=== PATIENT | female | born 1950 | race Caucasian/White ===

== ENCOUNTER 2022-12-17 10:40 | Emergency (ER) | payer MEDICARE, SELFPAY ==
[2022-12-17 10:53] VITALS: BP 124/59; PULSE 90; RESP 16; TEMP 36.8; O2SAT 98
--- NOTE | 2022-12-17 11:06 | ED.URI ---
HPI - URI/Sore Throat General Chief Complaint: Upper Respiratory Infection Stated Complaint: Sore Throat/Ear Pain Source: patient and RN notes reviewed History of Present Illness HPI Narrative: 72 yo F presents to urgent care for a sore throat and bilateral ear pain since Wednesday. Pt reports tender, cervical, lymph nodes as well. Reports a slight runny nose. Denies any fevers, chills, N/V/D, abdominal pain, chest pain, SOB, or ONEILL. Pt was seen at another urgent care on Wednesday where they didn't have any strep swabs so they prescribed pt Augmentin to cover strep. Pt has been taking the Augmentin without relief. Pt also has taken Tylenol at home. Related Data Home Medications Medication Instructions Recorded Confirmed amlodipine 5 mg tablet mg 12/17/22 amoxicillin 875 mg-potassium tablet 12/17/22 clavulanate 125 mg tablet aspirin 81 mg chewable tablet 81 mg PO DAILY 12/17/22 12/17/22 atorvastatin 20 mg tablet mg 12/17/22 enalapril maleate 20 mg tablet mg 12/17/22 paroxetine HCl 20 mg tablet mg PO 12/17/22 topiramate 25 mg tablet mg 12/17/22 Allergies Allergy/AdvReac Type Severity Reaction Status Date / Time No Known Allergies Allergy Verified 12/17/22 11:02 Review of Systems Review of Systems: Pertinent positives and pertinent negatives per HPI. [facility] Family History Family History (Updated 04/12/14 @ 07:13 by DOCTOR UNKNOWN) Mother Family history of thyroid disease Hypertension Family history of kidney disease Sibling Hypertension Father Cerebrovascular accident Family history of kidney disease Social History Social History Smoking status: Never smoker Alcohol intake: never Comments At the time of my signature, I reviewed and agree with the nursing past medical, surgical, social, and family history. There is no relevant family history pertinent to the patient complaint. Exam Narrative: GENERAL: This is a well-nourished, well-developed patient, in no apparent distress. HEAD: normocephalic, atraumatic. EYES: Sclera clear/white. Vision is grossly intact. EARS: External ears normal, auditory canals clear and without drainage, TMs normal without perforation. Hearing grossly intact. NOSE: External nose normal with no obvious nasal discharge, nares without redness, no rhinorrhea. THROAT: Mucous membranes moist, posterior pharynx erythemic. NECK: Neck supple, non-tender without lymphadenopathy, masses or thyromegaly. CARDIOVASCULAR: Regular rate and rhythm without murmurs, gallops, or rubs. RESPIRATORY: Clear to auscultation. Breath sounds equal bilaterally. No wheezes, rales, or rhonchi. SKIN: warm, intact with no suspicious lesions or rash, good texture and turgor. NEURO: awake, alert, and oriented to person, place and time. There were no obvious focal neurologic abnormalities. Course Course Level of Care: Express Care Visit Vital Signs Vital signs: Vital Signs Temperature 98.2 F 12/17/22 10:53 Pulse Rate 90 12/17/22 10:53 Respiratory Rate 16 12/17/22 10:53 Blood Pressure 124/59 L 12/17/22 10:53 Pulse Oximetry 98 12/17/22 10:53 Oxygen Delivery Room Air 12/17/22 10:53 Temperature 98.2 F 12/17/22 10:53 Pulse Rate 90 12/17/22 10:53 Respiratory Rate 16 12/17/22 10:53 Blood Pressure 124/59 L 12/17/22 10:53 Pulse Oximetry 98 12/17/22 10:53 Oxygen Delivery Room Air 12/17/22 10:53 reviewed. MDM - URI/Sore Throat MDM Narrative Medical decision making narrative: May take Tylenol for pain if needed. Get plenty of fluids at home. Increase your Vitamin C. Go to the ER with any new or worsening symptoms. Follow up with general contractor in 2-7 days. Differential Diagnosis Differential diagnosis: Likely upper respiratory infection, otitis media and pharyngitis Critical Care Time Critical Care Time Critical Care Time: No Discharge Plan Discharge Clinical Impression: Pharyngitis Qualifiers: Pharyngitis/tonsillitis etiology:
== END 2022-12-17 11:10 | disposition home or self-care (01) ==
PROVIDERS: Emergency Provider Nurse Practitioner Family; PCP Internal Medicine
DX: J02.9 Acute pharyngitis, unspecified (principal); E78.00 Pure hypercholesterolemia, unspecified; I10 Essential (primary) hypertension; F41.9 Anxiety disorder, unspecified; F32.A Depression, unspecified
CPT/HCPCS: 99211; G0463

== ENCOUNTER 2025-07-29 08:27 | Emergency (ER) | payer MEDICARE, SELFPAY ==
[2025-07-29 08:37] VITALS: BP 151/76; PULSE 101; RESP 20; TEMP 36.2; O2SAT 95
--- NOTE | 2025-07-29 08:57 | ED.URI ---
HPI - URI/Sore Throat General Chief Complaint: Upper Respiratory Infection Stated Complaint: head congestion Time Seen by Provider: 07/29/25 08:50 Source: patient and RN notes reviewed Mode of arrival: ambulatory Limitations: no limitations History of Present Illness HPI Narrative: 74-year-old female patient with history of interstitial lung disease presents today with a 1+ week history of nasal congestion, headache, severe sinus pressure. Reports she had a sore throat initially but this has since resolved. States symptoms improved somewhat but worsened since yesterday. Denies cough, fever, shortness of breath. She has tried some Tylenol with some mild improvement of the headache. Related Data Home Medications ?Medication ?Instructions ?Recorded ?Confirmed ?Last Taken ?Type atorvastatin 20 mg tablet 20 mg PO DAILY 12/17/22 12/17/22 Unknown History enalapril maleate 20 mg tablet 20 mg PO BID 12/17/22 12/17/22 Unknown History topiramate 25 mg tablet 25 mg PO BID 12/17/22 12/17/22 Unknown History apixaban 2.5 mg tablet (Eliquis) mg 07/29/25 Unknown History aripiprazole 2 mg tablet mg 07/29/25 Unknown History empagliflozin 10 mg tablet mg 07/29/25 Unknown History (Jardiance) furosemide 40 mg tablet mg 07/29/25 Unknown History nintedanib 100 mg capsule (Ofev) mg PO 07/29/25 Unknown History omeprazole 20 mg capsule,delayed mg 07/29/25 Unknown History release paroxetine HCl 40 mg tablet mg PO 07/29/25 Unknown History spironolactone 25 mg tablet mg 07/29/25 Unknown History Allergies Allergy/AdvReac Type Severity Reaction Status Date / Time No Known Allergies Allergy Verified 07/29/25 08:44 [facility] Past Medical History Medical History (Updated 07/29/25 @ 09:03 by Ade Jay, PAXTON, AARTI) History of DVT (deep vein thrombosis) History of pulmonary embolism Interstitial lung disease Osteopenia Mixed hyperlipidemia Gastroesophageal reflux disease without esophagitis CKD (chronic kidney disease) stage 3, GFR 30-59 ml/min Family History Family History Mother Family history of thyroid disease Hypertension Family history of kidney disease Sibling Hypertension Father Cerebrovascular accident Family history of kidney disease Social History Social History Smoking status: Never smoker Alcohol intake: never Comments At time of signature, I have reviewed and agree with nursing past medical, surgical, social and family history unless otherwise noted. Please see nursing chart for further information. There is no relevant family history pertinent to the presenting complaint Exam Narrative: GENERAL: Mildly ill-appearing, well-nourished, and in no acute distress. HEAD: Normocephalic, atraumatic. EYES: EOMI. No redness or drainage. Conjunctivae normal. ENT: Mucous membranes pink and moist. Nares congested. Erythematous and edematous nasal turbinates bilaterally. Bilateral frontal and maxillary sinus tenderness. No rhinorrhea. TMs normal bilaterally. Throat normal. Uvula midline. NECK: Normal AROM. Supple. No lymphadenopathy. CHEST: No respiratory distress. Clear to auscultation. HEART: Regular rate and rhythm. No murmur appreciated. EXTREMITIES: Normal range of motion. No edema. SKIN: Warm, dry, no rash. Capillary refill normal. Normal skin turgor. NEURO: No focal deficits. Alert and oriented x3. Gait steady. PSYCH: Normal affect. No signs of depression or anxiety. Course Course Level of Care: Express Care Visit Vital Signs Vital signs: Vital Signs Temperature 97.1 F L 07/29/25 08:37 Pulse Rate 101 H 07/29/25 08:37 Respiratory Rate 20 07/29/25 08:37 Blood Pressure 151/76 H 07/29/25 08:37 Pulse Oximetry 95 07/29/25 08:37 Oxygen Delivery Room Air 07/29/25 08:37 Temperature 97.1 F L 07/29/25 08:37 Pulse Rate 101 H 07/29/25 08:37 Respiratory Rate 20 07/29/25 08:37 Blood Pressure 151/76 H 07/29/25 08:37 Pulse Oximetry 95 07/29/25 08:37 Oxygen Delivery Room Air 07/29/25 08:37 Reviewed MDM MDM Narrative Medical decision making narrative: 74-year-old female patient with history of interstitial lung disease presents today with a 1+ week history of nasal congestion, headache, severe sinus pressure. Reports she had a sore throat initially but this has since resolved. States symptoms improved somewhat but worsened since yesterday. Denies cough, fever, shortness of breath. She has tried some Tylenol with some mild improvement of the headache. Upon exam, patient is mildly ill appearing with nasal congestion, erythematous and edematous nasal turbinates. Do the timeline of her illness, patient will be treated with Augmentin for bacterial sinusitis. Also recommend starting Flonase to help with the congestion and sinus pressure. Patient agrees with plan. Vital signs stable. Anticipatory guidance given. Differential Diagnosis Differential Diagnosis: URI, sinusitis, rhinitis Critical Care Time Critical Care Time Critical Care Time: No Discharge Plan Discharge Clinical Impression: Sinusitis Qualifiers: Sinusitis location: unspecified location Chronicity: acute Recurrence: non-recurrent Qualified Code(s): J01.90 - Acute sinusitis, unspecified Patient Disposition: Home Condition: Stable Instructions: Antibiotic Form, Sinusitis (ED) Additional Instructions: Please take the Augmentin and Flonase as directed. Follow-up with your PCP in 3 days if symptoms are not improving. Patient Language: Upper Sorbian Prescriptions: New fluticasone propionate [Flonase Allergy Relief] 50 mcg/actuation spray,suspension 2 spray intranasal DAILY PRN (Reason: nasal congestion) Qty: 15.8 0RF Rx Instructions: administer into each nostril amoxicillin-pot clavulanate 875-125 mg tablet 1 tablet PO Q12H 7 Days Qty: 14 0RF No Action atorvastatin 20 mg tablet 20 mg PO DAILY enalapril maleate 20 mg tablet 20 mg PO BID topiramate 25 mg tablet 25 mg PO BID furosemide 40 mg tablet spironolactone 25 mg tablet omeprazole 20 mg capsule,delayed release(DR/EC) paroxetine HCl 40 mg tablet PO aripiprazole 2 mg tablet Eliquis 2.5 mg tablet Jardiance 10 mg tablet Ofev 100 mg capsule PO Follow-up/Referrals: Ranjan,MD Austen [Primary Care Provider] Time of Disposition: 09:03
== END 2025-07-29 09:06 | disposition home or self-care (01) ==
PROVIDERS: Emergency Provider Nurse Practitioner; PCP Internal Medicine Infectious Disease
DX: J01.90 Acute sinusitis, unspecified (principal); N18.30 Chronic kidney disease, stage 3 unspecified; J84.9 Interstitial pulmonary disease, unspecified; E78.2 Mixed hyperlipidemia; K21.9 Gastro-esophageal reflux disease without esophagitis; M85.80 Other specified disorders of bone density and structure, unspecified site; Z86.718 Personal history of other venous thrombosis and embolism; Z86.711 Personal history of pulmonary embolism; Z79.01 Long term (current) use of anticoagulants
CPT/HCPCS: 99213; G0463